=== PATIENT | female | born 1965 | race American Indian/Alaskan Native ===

== ENCOUNTER 2016-08-30 21:14 | Emergency (ER) | payer SELFPAY ==
--- NOTE | 2016-08-30 22:39 | XRay Report ---
FINAL REPORT EXAM: XR KNEE 1-2V LT HISTORY: fall// LEFT KNEE PAIN COMPARISONS: None. FINDINGS: AP and lateral views left knee No fracture or effusion. Retropatellar subchondral cyst formation and irregularity. Small marginal osteophytosis is present in all 3 compartments of the left knee. No fracture, gross malalignment or effusion. IMPRESSION: Mild tricompartmental osteoarthrosis is most prominent in the patellofemoral compartment. Please correlate with history of prior injury or other insult as distribution is atypical.
[2016-08-31] MEDS ORDERED: TORADOL IM ONE (04:33)
[2016-08-31] MEDS ORDERED: FLEXERIL PO ONE (04:33)
--- NOTE | 2016-08-31 04:33 | Emergency Department Report ---
HPI - General Chief Complaint: Extremity Injury, Lower Time Seen by Provider: 08/31/16 03:53 - HPI HPI: is a 51-year-old female presents to ED complaining of left knee pain 1 day. Patient states she was at [facility] earlier today around 7:00 when she slipped on a wet floor and fell and hit her left knee. She states pain began shortly after fall. Patient states pain as throbbing, aching in, 8 out of 10 intensity that they sometimes felt on her toes ED Past Medical Hx - Past Medical History Previous Medical History?: Yes Hx Diabetes: Yes - Surgical History Past Surgical History?: Yes Additional Surgical History: c- sec knee surgery hysterectomy - Social History Smoking Status: Never Smoker Substance Use Type: None - Medications Home Medications: Home Medications Medication Instructions Recorded Confirmed Last Taken Type Cyclobenzaprine [Flexeril 10 MG 10 mg PO QHS #20 tablet 08/31/16 Unknown Rx TAB] Naproxen [Naprosyn] 500 mg PO BID #30 tablet 08/31/16 Unknown Rx glipiZIDE [Glucotrol] 10 mg PO BID 08/31/16 08/31/16 1 Day Ago History ED Review of Systems ROS: Stated complaint: FALL Other details as noted in HPI Constitutional: denies: chills, fever Eyes: denies: eye pain, eye discharge, vision change ENT: denies: ear pain, throat pain Respiratory: denies: cough, shortness of breath, wheezing Cardiovascular: denies: chest pain, palpitations Endocrine: no symptoms reported Gastrointestinal: denies: abdominal pain, nausea, diarrhea Genitourinary: denies: urgency, dysuria, discharge Musculoskeletal: arthralgia. denies: back pain, joint swelling Skin: denies: rash, lesions Neurological: denies: headache, weakness, paresthesias Psychiatric: denies: anxiety, depression Hematological/Lymphatic: denies: easy bleeding, easy bruising Physical Exam - Physical Exam Vital Signs: Vital Signs 08/30/16 21:45 Temperature 98.4 F Pulse Rate 88 Respiratory 18 Rate Blood Pressure 148/99 O2 Sat by Pulse 100 Oximetry Physical Exam: GENERAL: Alert and oriented x3, no apparent distress, Normal Gait, atraumatic. HEAD: Head is normocephalic and a-traumatic. EYES: Extra ocular muscles are intact. Pupils are equal, round, and reactive to light and accommodation. NECK: Supple. Non edematous, No carotid bruits. No lymphadenopathy or thyromegaly. No C-spine tenderness LUNGS: Symetrical with respiration, No wheezing, no rales or crackles, CTAB. HEART: S1, S2 present, regular rate and rhythm without murmur, no rubs, no gallops. Non tender to palpation EXTREMITIES/MUSCULOSKELETAL: No cyanosis, clubbing, rash, lesions or edema. Full ROM bilaterally. UE Pulses 2+ bilaterally. Negative valgus and valus test. tenderness to palpation of the anterior aspect of the knee. No swelling noted. Joints is intact. NEUROLOGIC: The patient is cooperative with no focal neurologic deficits. Cranial nerves II through XII are grossly intact. Normal speech. N PSYCHIATRIC: Mood is congruent with affect, denies suicidal or homicidal ideations. SKIN: Warm and dry, No lesions, No ulceration or induration present. ED Course Vital Signs 08/30/16 21:45 Temperature 98.4 F Pulse Rate 88 Respiratory 18 Rate Blood Pressure 148/99 O2 Sat by Pulse 100 Oximetry ED Medical Decision Making - Medical Decision Making 51-year-old female presents with knee pain status post fall ED course: Knee x-ray shows mild tricompartmental osteoarthritis otherwise no acute fracture or dislocation Patient received Toradol and Flexeril in the ED. Discussed x-ray results with patient. Discussed with patient follow-up with primary care physician as stated. Discussed wrist and knee exercises to prevent stiffening Discussed heat and ice therapy as needed Discussed home medications lisinopril and naproxen Vital signs are normal patient is no acute distress she understands all instructions given. Critical care attestation.: If time is entered above; I have spent that time in minutes in the direct care of this critically ill patient, excluding procedure time. ED Disposition Clinical Impression: Knee pain, left Qualifiers: Chronicity: acute Qualified Code(s): M25.562 - Pain in left knee Fall Qualifiers: Encounter type: initial encounter Qualified Code(s): W19.XXXA - Unspecified fall, initial encounter Disposition: - TO HOME OR SELFCARE Is pt being admited?: No Does the pt Need Aspirin: No Condition: Stable Instructions: Arthralgia (ED), Knee Exercises (GEN), Knee Pain (ED) Prescriptions: Cyclobenzaprine [Flexeril 10 MG TAB] 10 mg PO QHS #20 tablet Naproxen [Naprosyn] 500 mg PO BID #30 tablet Referrals: PRIMARY CAREMD [Primary Care Provider] - 3-5 Days KEY GRULLON MD [Referring] - 3-5 Days [facility] [Outside] - 3-5 Days [facility] [Outside] - 3-5 Days [facility] [Outside] - 3-5 Days Forms: Work/School Release Form(ED) Time of Disposition: 04:40
[2016-08-31 05:12] VITALS: BP 144/72
== END 2016-08-31 05:16 | disposition home or self-care (01) ==
LOC: ED 21:14
DX: M25.562 Pain in left knee (principal); E11.9 Type 2 diabetes mellitus without complications; W01.0XXA Fall on same level from slipping, tripping and stumbling without subsequent striking against object, initial encounter; Y93.89 Activity, other specified; Y92.89 Other specified places as the place of occurrence of the external cause; Y99.8 Other external cause status; Z88.6 Allergy status to analgesic agent
CPT/HCPCS: 73560; 96372; 99283; J1885

== ENCOUNTER 2021-09-11 10:11 | Outpatient (CLI) | payer OTHER ==
--- NOTE | 2021-09-11 11:08 | XRay Report ---
THORACIC SPINE 3 VIEWS INDICATION: BACK PAIN. COMPARISON: None. IMPRESSION: Normal alignment. Mild multilevel degenerative disc disease is noted in the mid to lowe r thoracic spine. No evidence for fracture or bone lesion. No paraspinal abnormality is appreciated. Signer Name: Micah Go Jr, MD Signed: 09/11/2021 11:03 AM Workstation Name: [id number]
== END 2021-09-11 10:12 | disposition home or self-care (01) ==
LOC: XRAY 10:11
PROVIDERS: ATTEND Internal Medicine
DX: M47.814 Spondylosis without myelopathy or radiculopathy, thoracic region (principal)
CPT/HCPCS: 72070